=== PATIENT | female | born 1995 | race Caucasian/White ===

== ENCOUNTER 2017-02-22 01:03 | Emergency (ER) | payer OTHER ==
[~2017-02-22] VITALS: Ht 172.7 cm; Wt 61.2 kg
[~2017-02-22 01:03] MED LIST: 'PARAFON FORTE500 M1 PO; ANXIETY MED PO; BIRTH CONTROL PO; BIRTH CONTROL1 EACH PO; MEDROL DOSEPAK4 MG PO; MOTRIN400 MG PO; NAPROSYN500 MG PO; PRENATAL1 TA7 PO; PRILOSEC20 MG PO; ZITHROMAX250 MG PO; ZOFRAN ODT4 MG SL; ZOLOFT50 MG PO
[2017-02-22 01:42] LABS: BASO # 0.1 10*3/uL (0.0-0.1); BASO % 0.7 % (0.0-1.0); EOS # 0.1 10*3/uL (0.0-0.4); EOS % 1.3 % (1.0-4.0); HEMATOCRIT 41.1 % (37.0-47.0); HEMOGLOBIN 14.1 g/dl (12.0-16.0); LYMPH # 2.9 10*3/uL (1.3-4.4); LYMPH % 32.4 % (27.0-41.0); MEAN CELL VOLUME 83.7 fl (81.0-99.0); MEAN CORPUSCULAR HGB 28.7 pg (27.0-31.0); MEAN CORPUSCULAR HGB CONC 34.3 g/dl (33.0-37.0); MEAN PLATELET VOLUME 10.6 fl (9.6-12.3); MONO # 0.6 10*3/uL (0.1-1.0); MONO % 6.6 % (3.0-9.0); NEUT # 5.2 10*3/uL (2.3-7.9); NEUT % 58.8 % (47.0-73.0); PLATELET COUNT AUTOMATED 217 10*3/uL (130-400); RED BLOOD COUNT 4.91 10*6/uL (4.10-5.10); RED CELL DISTRI WIDTH 12.5 % (0-14.5); WHITE BLOOD COUNT 8.9 10*3/uL (4.8-10.8)
[2017-02-22 01:59] LABS: ALBUMIN 4.1 gm/dl (3.1-4.5); ALKALINE PHOSPHATASE 80 U/L (45-117); BUN 12 mg/dl (7-24); CHLORIDE 109 mmol/L (98-107); CREATININE 0.68 mg/dL (0.55-1.02); LIPASE 199 U/L (73-393); POTASSIUM 3.8 mmol/L (3.5-5.1); SGOT/AST 20 IU/L (3-35); SGPT/ALT 23 U/L (12-78); SODIUM 141 mmol/L (136-145); TOTAL PROTEIN 6.9 gm/dL (6.4-8.2)
[2017-02-22 02:00] LABS: BILIRUBIN NEGATIVE (NEGATIVE); BLOOD 1+ (NEGATIVE); CLARITY CLEAR (CLEAR); COLOR YELLOW (YELLOW); GLUCOSE NEGATIVE (NEGATIVE); KETONE NEGATIVE (NEGATIVE); LEUKO ESTERASE NEGATIVE (NEGATIVE); NITRITE NEGATIVE (NEGATIVE); PH 6.5 (5.0-9.0); SPECIFIC GRAVITY <= 1.005 (1.005-1.030); UROBILINOGEN 0.2 E.U./dl (0.2-1.0)
[2017-02-22 02:06] LABS: WBC 0-2 wbc/hpf (0-5)
== END 2017-02-22 06:16 | disposition home or self-care (01) ==
LOC: ED 01:03
PROVIDERS: Physician Assistant
DX: O26.891 Other specified pregnancy related conditions, first trimester (principal); Z3A.14 14 weeks gestation of pregnancy

== ENCOUNTER → 2017-02-24 | Outpatient (CLI) | payer OTHER | END | disposition home or self-care (01) | LOC: LAB 13:42 | DX: Z32.01 Encounter for pregnancy test, result positive (principal); R10.2 Pelvic and perineal pain ==

== ENCOUNTER 2017-05-30 18:24 | Emergency (ER) | payer OTHER ==
[~2017-05-30] VITALS: Ht 152.4 cm; Wt 51.7 kg
[2017-05-30] MEDS ORDERED: TAMIFLU 75MG CA75 MG PO (19:39)
== END 2017-05-30 19:33 | disposition home or self-care (01) ==
LOC: ED 18:24
DX: O99.512 Diseases of the respiratory system complicating pregnancy, second trimester (principal); J10.1 Influenza due to other identified influenza virus with other respiratory manifestations; Z3A.19 19 weeks gestation of pregnancy

== ENCOUNTER 2017-07-31 21:59 | Emergency (ER) | payer OTHER ==
[~2017-07-31] VITALS: Ht 152.4 cm; Wt 52.2 kg
[~2017-07-31 21:59] MED LIST changes: +TAMIFLU 75MG CA75 MG PO
[2017-07-31 22:26] LABS: BILIRUBIN NEGATIVE (NEGATIVE); BLOOD 1+ (NEGATIVE); CLARITY SL CLOUDY (CLEAR); COLOR YELLOW (YELLOW); GLUCOSE NEGATIVE (NEGATIVE); KETONE NEGATIVE (NEGATIVE); LEUKO ESTERASE 2+ (NEGATIVE); NITRITE NEGATIVE (NEGATIVE); PH 6.5 (5.0-9.0); SPECIFIC GRAVITY 1.025 (1.005-1.030)
[2017-07-31 22:30] LABS: EPITHELIAL CELLS TNTC
[2017-07-31 22:31] LABS: RBC 21-30 rbc/hpf (0-2); WBC 21-30 wbc/hpf (0-5)
[2017-07-31] MEDS ORDERED: MACROBID100 M1 PO (22:38)
== END 2017-07-31 23:42 | disposition home or self-care (01) ==
LOC: ED 21:59
PROVIDERS: Emergency Medicine Emergency Medical Services
DX: O23.43 Unspecified infection of urinary tract in pregnancy, third trimester (principal); Z3A.28 28 weeks gestation of pregnancy

== ENCOUNTER 2017-09-14 23:16 | Emergency (ER) | payer OTHER ==
[~2017-09-14] VITALS: Ht 152.4 cm; Wt 72.6 kg
[~2017-09-14 23:16] MED LIST changes: +MACROBID100 M1 PO
[2017-09-14 23:54] LABS: BASO % 0.3 % (0.0-1.0); EOS # 0.1 10*3/uL (0.0-0.4); HEMATOCRIT 38.5 % (37.0-47.0); HEMOGLOBIN 12.7 g/dl (12.0-16.0); LYMPH # 2.4 10*3/uL (1.3-4.4); MEAN CELL VOLUME 88.5 fl (81.0-99.0); MEAN CORPUSCULAR HGB 29.2 pg (27.0-31.0); MEAN PLATELET VOLUME 10.8 fl (9.6-12.3); MONO # 0.8 10*3/uL (0.1-1.0); MONO % 7.9 % (3.0-9.0); NEUT # 6.5 10*3/uL (2.3-7.9); NEUT % 65.8 % (47.0-73.0); PLATELET COUNT AUTOMATED 181 10*3/uL (130-400); RED BLOOD COUNT 4.35 10*6/uL (4.10-5.10); RED CELL DISTRI WIDTH 12.1 % (0-14.5); WHITE BLOOD COUNT 9.9 10*3/uL (4.8-10.8)
[2017-09-15 00:02] LABS: ACT PARTIAL THROMBO TIME 22.3 SECONDS (20.8-31.5); INTERNATIONAL NORM RATIO 0.9 (2.0-3.5)
[2017-09-15 00:07] LABS: ALBUMIN 2.8 gm/dl (3.1-4.5); ALKALINE PHOSPHATASE 111 U/L (45-117); BUN 11 mg/dl (7-24); CHLORIDE 109 mmol/L (98-107); CREATININE 0.64 mg/dL (0.55-1.02); POTASSIUM 4.4 mmol/L (3.5-5.1); SGOT/AST 18 IU/L (3-35); SGPT/ALT 17 U/L (12-78); SODIUM 142 mmol/L (136-145); TOTAL PROTEIN 6.2 gm/dL (6.4-8.2)
== END 2017-09-15 00:35 | disposition short-term general hospital (02) ==
LOC: ED 23:16
PROVIDERS: Student in an Organized Health Care Education/Training Program
DX: O46.93 Antepartum hemorrhage, unspecified, third trimester (principal); Z3A.35 35 weeks gestation of pregnancy; Z98.890 Other specified postprocedural states

== ENCOUNTER → 2018-05-26 | Day surgery (SDC) | payer OTHER ==
[~2018-05-26] VITALS: Ht 152.4 cm; Wt 54.4 kg
[~2018-05-26] MED LIST changes: +ESCITALOPRAM OXA5 MG PO; +NORCO 5-325 TA1 EACH PO; +PENICILLIN VK500 MG PO
--- NOTE | ~2018-05-26 | O ---
[place], [place] OPERATIVE NOTE NAME: DENNY KLEIN UNIT #: [id number] ROOM: DOCTOR: HSEKHAR MONCADA DMD BIRTHDATE: [birth year] DOS: PREOPERATIVE DIAGNOSES: Impacted third molars and anxiety. POSTOPERATIVE DIAGNOSES: Impacted third molars and anxiety. ANESTHESIA: General anesthesia with endotracheal intubation. FLUIDS: Minimal. ESTIMATED BLOOD LOSS: Minimal. COMPLICATIONS: None. CONDITION: To PACU, stable. DESCRIPTION OF PROCEDURE: The patient was brought to the OR and placed in supine position. IV and EKG lines were placed. Endotracheal intubation and general anesthesia was administered. The patient was prepped and draped for oral procedures. Risks and benefits were explained to the patient prior to surgery. Clinical exam and x-rays taken determined complete bony impactions of teeth numbers 1, 16, and 17. PROCEDURES PERFORMED: Full thickness flaps in the upper right, upper left, and lower left quadrant with moderate bone removal, sectioning of tooth #17. Complete extraction of teeth numbers 1, 16, 17. Sutured with 4-0 Vicryl. Lavaged x 2. Throat pack removed. The patient left the OR in good condition and went to the PACU. SHEKHAR MONCADA DMD CM:OPRECORD:OPERATIVE NOTE [id number] SHEKHAR MONCADA DMD 05/27/18 0851 interface
[2018-05-26 10:45] VITALS: BP 115/79
[2018-05-26 12:44] VITALS: BP 106/41
[2018-05-26 12:59] VITALS: BP 103/64
[2018-05-26 13:14] VITALS: BP 110/69
[2018-05-26 13:29] VITALS: BP 98/68
[2018-05-26 13:44] VITALS: BP 112/68
== END | disposition home or self-care (01) ==
LOC: SDC 05-19 10:15
DX: K01.1 Impacted teeth (principal); F41.9 Anxiety disorder, unspecified; J45.909 Unspecified asthma, uncomplicated; Z90.49 Acquired absence of other specified parts of digestive tract; Z98.890 Other specified postprocedural states; Z96.22 Myringotomy tube(s) status; Z79.899 Other long term (current) drug therapy

== ENCOUNTER 2018-12-13 21:10 | Emergency (ER) | payer OTHER ==
[~2018-12-13] VITALS: Ht 152.4 cm; Wt 53.5 kg
[2018-12-13] MEDS ORDERED: ANAPROX DS550 MG PO (22:21)
== END 2018-12-13 22:45 | disposition home or self-care (01) ==
LOC: ED 21:10
DX: S61.032A Puncture wound without foreign body of left thumb without damage to nail, initial encounter (principal); S60.012A Contusion of left thumb without damage to nail, initial encounter; Z79.899 Other long term (current) drug therapy; W23.0XXA Caught, crushed, jammed, or pinched between moving objects, initial encounter; Y93.89 Activity, other specified; Y92.810 Car as the place of occurrence of the external cause; Y99.8 Other external cause status

== ENCOUNTER 2019-06-17 18:58 | Emergency (ER) | payer OTHER ==
[~2019-06-17] VITALS: Ht 152.4 cm; Wt 60.3 kg
[~2019-06-17 18:58] MED LIST changes: +ANAPROX DS550 MG PO
[2019-06-17 19:52] LABS: BASO # 0.1 10*3/uL (0.0-0.1); BASO % 0.8 % (0.0-1.0); EOS # 0.2 10*3/uL (0.0-0.4); EOS % 3.2 % (1.0-4.0); HEMATOCRIT 40.4 % (37.0-47.0); LYMPH # 2.3 10*3/uL (1.3-4.4); LYMPH % 34.7 % (27.0-41.0); MEAN CELL VOLUME 88.8 fl (81.0-99.0); MEAN CORPUSCULAR HGB 28.6 pg (27.0-31.0); MEAN CORPUSCULAR HGB CONC 32.2 g/dl (33.0-37.0); MEAN PLATELET VOLUME 10.6 fl (9.6-12.3); MONO # 0.7 10*3/uL (0.1-1.0); MONO % 10.1 % (3.0-9.0); NEUT # 3.4 10*3/uL (2.3-7.9); NEUT % 50.9 % (47.0-73.0); PLATELET COUNT AUTOMATED 225 10*3/uL (130-400); RED BLOOD COUNT 4.55 10*6/uL (4.10-5.10); RED CELL DISTRI WIDTH 11.7 % (0-14.5); WHITE BLOOD COUNT 6.7 10*3/uL (4.8-10.8)
[2019-06-17 20:08] LABS: ALBUMIN 3.7 gm/dl (3.1-4.5); ALKALINE PHOSPHATASE 180 U/L (45-117); BUN 17 mg/dl (7-24); CHLORIDE 109 mmol/L (98-107); CREATININE 0.94 mg/dL (0.55-1.02); POTASSIUM 4.3 mmol/L (3.5-5.1); SGOT/AST 28 IU/L (3-35); SGPT/ALT 52 U/L (12-78); SODIUM 141 mmol/L (136-145); TOTAL PROTEIN 6.8 gm/dL (6.4-8.2)
[2019-06-17 20:12] LABS: BILIRUBIN NEGATIVE (NEGATIVE); CLARITY CLEAR (CLEAR); COLOR YELLOW (YELLOW); GLUCOSE NEGATIVE (NEGATIVE); KETONE NEGATIVE (NEGATIVE)
[2019-06-17 20:13] LABS: BLOOD NEGATIVE (NEGATIVE); LEUKO ESTERASE 1+ (NEGATIVE); NITRITE NEGATIVE (NEGATIVE)
[2019-06-17 20:15] LABS: BACTERIA 1+; EPITHELIAL CELLS 15-20
[2019-06-18] MEDS ORDERED: PYRIDIUM200 M1 PO (00:20)
[2019-06-18] MEDS ORDERED: SEPTDS PO (00:20)
== END 2019-06-18 01:28 | disposition home or self-care (01) ==
LOC: ED 18:58
PROVIDERS: Emergency Medicine
DX: N39.0 Urinary tract infection, site not specified (principal); N12 Tubulo-interstitial nephritis, not specified as acute or chronic; J45.909 Unspecified asthma, uncomplicated; Z79.899 Other long term (current) drug therapy; Z90.49 Acquired absence of other specified parts of digestive tract

== ENCOUNTER → 2019-12-10 | Outpatient (CLI) | payer OTHER ==
[~2019-12-10] MED LIST changes: +PYRIDIUM200 M1 PO; +SEPTDS PO
== END | disposition home or self-care (01) ==
LOC: US 11-26 17:00 → RAD 08:58 → US 10:00
DX: M85.852 Other specified disorders of bone density and structure, left thigh (principal); M85.851 Other specified disorders of bone density and structure, right thigh; R74.8 Abnormal levels of other serum enzymes

== ENCOUNTER → 2019-12-15 | Outpatient (CLI) | payer OTHER ==
[2019-12-15 18:22] LABS: BASO # 0.1 10*3/uL (0.0-0.1); BASO % 1.1 % (0.0-1.0); EOS # 0.1 10*3/uL (0.0-0.4); HEMATOCRIT 43.6 % (37.0-47.0); LYMPH # 2.6 10*3/uL (1.3-4.4); LYMPH % 35.6 % (27.0-41.0); MEAN CORPUSCULAR HGB 27.5 pg (27.0-31.0); MEAN CORPUSCULAR HGB CONC 32.3 g/dl (33.0-37.0); MEAN PLATELET VOLUME 10.5 fl (9.6-12.3); MONO # 0.5 10*3/uL (0.1-1.0); MONO % 6.6 % (3.0-9.0); NEUT # 3.9 10*3/uL (2.3-7.9); NEUT % 54.6 % (47.0-73.0); PLATELET COUNT AUTOMATED 274 10*3/uL (130-400); RED BLOOD COUNT 5.13 10*6/uL (4.10-5.10); RED CELL DISTRI WIDTH 11.6 % (0-14.5); WHITE BLOOD COUNT 7.2 10*3/uL (4.8-10.8)
[2019-12-15 18:29] LABS: BILIRUBIN NEGATIVE (NEGATIVE); BLOOD NEGATIVE (NEGATIVE); CLARITY SL CLOUDY (CLEAR); COLOR YELLOW (YELLOW); GLUCOSE NEGATIVE (NEGATIVE); KETONE NEGATIVE (NEGATIVE); LEUKO ESTERASE TRACE (NEGATIVE); NITRITE NEGATIVE (NEGATIVE); UROBILINOGEN 0.2 E.U./dl (0.2-1.0)
[2019-12-15 18:42] LABS: ALKALINE PHOSPHATASE 134 U/L (45-117); BUN 12 mg/dl (7-24); CHLORIDE 105 mmol/L (98-107); CREATININE 0.81 mg/dL (0.55-1.02); POTASSIUM 3.9 mmol/L (3.5-5.1); SGOT/AST 14 IU/L (3-35); SGPT/ALT 29 U/L (12-78); SODIUM 139 mmol/L (136-145); TOTAL PROTEIN 7.3 gm/dL (6.4-8.2); URIC ACID 3.5 mg/dL (2.6-6.0)
[2019-12-15 18:57] LABS: WBC 16-20 wbc/hpf (0-5)
[2019-12-15 18:58] LABS: BACTERIA 1+; EPITHELIAL CELLS 16-20
[2019-12-15 19:14] LABS: VITAMIN D, 25-HYDROXY 46.1 ng/mL (30-100)
[2019-12-15 19:15] LABS: PTH INTACT 79.4 pg/mL (18.5-88.0)
== END | disposition home or self-care (01) ==
LOC: LAB 17:41
PROVIDERS: Registered Nurse Flight
DX: R74.8 Abnormal levels of other serum enzymes (principal)

== ENCOUNTER → 2019-12-24 | Outpatient (CLI) | payer OTHER | END | disposition home or self-care (01) | LOC: US 12-22 15:00 | DX: N64.4 Mastodynia (principal) ==

== ENCOUNTER → 2020-05-03 | Outpatient (CLI) | payer SELFPAY | END | disposition home or self-care (01) | LOC: COVID19 15:50 | PROVIDERS: ATTEND Internal Medicine | DX: Z20.828 Contact with and (suspected) exposure to other viral communicable diseases (principal) ==

== ENCOUNTER → 2024-04-22 | Outpatient (CLI) | payer OTHER | END | disposition home or self-care (01) | LOC: US 07:30 | PROVIDERS: ATTEND Nurse Practitioner Family | DX: R10.30 Lower abdominal pain, unspecified (principal) ==

== ENCOUNTER 2024-10-18 14:47 | Emergency (ER) | payer OTHER ==
[~2024-10-18] VITALS: Wt 59.0 kg
[2024-10-18] MEDS ORDERED: IOHEXOL 300 MG/ML 100 ML VIAL IV ONE (15:25)
[2024-10-18 15:38] LABS: BASO # 0.1 10*3/uL (0.0-0.1); BASO % 0.8 % (0.0-1.0); EOS # 0.2 10*3/uL (0.0-0.4); EOS % 2.3 % (1.0-4.0); HEMATOCRIT 44.4 % (37.0-47.0); MEAN CORPUSCULAR HGB 28.3 pg (27.0-31.0); MEAN CORPUSCULAR HGB CONC 32.9 g/dl (33.0-37.0); MEAN PLATELET VOLUME 10.6 fl (9.6-12.3); MONO # 0.5 10*3/uL (0.1-1.0); MONO % 7.4 % (3.0-9.0); NEUT # 3.6 10*3/uL (2.3-7.9); NEUT % 53.3 % (47.0-73.0); PLATELET COUNT AUTOMATED 233 10*3/uL (130-400); RED BLOOD COUNT 5.16 10*6/uL (4.10-5.10); RED CELL DISTRI WIDTH 11.3 % (0-14.5); WHITE BLOOD COUNT 6.7 10*3/uL (4.8-10.8)
[2024-10-18 16:05] LABS: BILIRUBIN Negative (Negative); BLOOD Negative (Negative); CLARITY Cloudy (Clear); COLOR Yellow (Yellow); GLUCOSE Negative (Negative); KETONE Trace (Negative); LEUKO ESTERASE Trace (Negative); NITRITE Negative (Negative); PH 7.5 (4.5-8.0); SPECIFIC GRAVITY 1.025 (1.001-1.030)
[2024-10-18 16:12] LABS: ALKALINE PHOSPHATASE 126 U/L (46-116); BUN 14 mg/dl (9-23); CHLORIDE 105 mmol/L (98-107); POTASSIUM 4.3 mmol/L (3.4-5.1); SGPT/ALT 43 U/L (5-49)
[2024-10-18 16:28] LABS: BACTERIA 1+; YEAST TRACE
[2024-10-18] MEDS ORDERED: HYDROmorphONE Hydrochloride 0.5 MG/0.5 ML SYRINGE IV ONE (17:10)
== END 2024-10-18 18:04 | disposition home or self-care (01) ==
LOC: ED 14:47
PROVIDERS: Internal Medicine
DX: G89.29 Other chronic pain (principal); M54.50 Low back pain, unspecified; Z79.899 Other long term (current) drug therapy; Z98.890 Other specified postprocedural states

== ENCOUNTER → 2024-11-17 | Outpatient (CLI) | payer OTHER ==
[~2024-11-17] MED LIST changes: +SODIUM BICARBONATE 4.2% 5 ML VIAL ONE
== END | disposition home or self-care (01) ==
LOC: US 11-04 11:00 → RAD 11:00 → EDSTATUS 11:00
PROVIDERS: ATTEND Internal Medicine Endocrinology, Diabetes & Metabolism
DX: E04.1 Nontoxic single thyroid nodule (principal)